=== PATIENT | female | born 1955 | race Caucasian/White ===

== ENCOUNTER 2017-01-20 15:17 | Emergency (ER) | payer BC ==
[2017-01-20 15:28] VITALS: TEMP 98.1; BMI 26.6
--- NOTE | 2017-01-20 16:40 | PDOC ---
History of Present Illness - General Chief Complaint: Palpitations Stated Complaint: PALPITATIONS/ SENSATION TO ARMS Time Seen by Provider: 01/20/17 15:39 History Source: Patient Exam Limitations: No Limitations - History of Present Illness Initial Comments: 01/20/17 17:32 The patient is a 61 year old female, with a significant past medical history of cervical Cancer (dx 2012), who presents to the emergency department with intermittent episodes of palpitations and tingling in her bilateral hands/ forearms intermittently for several days, these episodes last for ~5 seconds and then resolve. Pt also notes she has some facial tingling for day 1-2 after starting the tamoxifen but has since resolved. She reports being put on a new medication tamoxifen 2 weeks ago 01/05 for her cancer, with the development of her symptoms after. She also notes having some intermittent body aches, and joint pain since starting the medication as well. She denies fevers, chills, cough, headache or dizziness. She denies recent nausea, vomit, diarrhea or constipation. She denies recent dysuria, frequency, urgency or hematuria. She denies recent chest pain or shortness of breath. pt was referred to the ED by her doctor due to these sypmtoms. Allergies: Morphine Past surgical history: None reported. Social history: Nonsmoker. Denies EtOH use and recreational drug use. Daughter: Rema Montaño [phone] (cell) or [phone] (work) Oncologist: Dr. Wander Kirk [phone] Past History - Past Medical History Allergies/Adverse Reactions: Allergies Allergy/AdvReac Type Severity Reaction Status Date / Time morphine Allergy Mild Rash Verified 01/20/17 15:28 Home Medications: Ambulatory Orders Leuprolide Acetate [Lupron -] 1 mg SQ ASDIR 08/03/16 Cephalexin [Keflex] 500 mg PO BID #14 capsule 01/20/17 Tamoxifen Citrate 10 mg PO DAILY 01/20/17 Anemia: No Asthma: No Cancer: Yes (H/O UTERINE.) Cardiac Disorders: No CVA: No COPD: No CHF: No Dementia: No Diabetes: No GI Disorders: No Disorders: No HTN: No Hypercholesterolemia: No Liver Disease: No Suicide Attempt (Hx): No Seizures: No Thyroid Disease: No Other medical history: MACULAR DEGENERATION - Surgical History Abdominal Surgery: Yes (HERNIA) Appendectomy: Yes Cardiac Surgery: No Cholecystectomy: No Lung Surgery: No Neurologic Surgery: No Orthopedic Surgery: No - Psycho/Social/Smoking Cessation Hx Anxiety: No Suicidal Ideation: No Smoking History: Never smoked Have you smoked in the past 12 months: No Hx Alcohol Use: No Drug/Substance Use Hx: No Substance Use Type: None Hx Substance Use Treatment: No Cardiac Specific PMH - Complaint Specific PMHX Pacemaker: No Review of Systems - Review of Systems Able to Perform ROS?: Yes Comments:: 01/20/17 17:43 CONSTITUTIONAL: No reported: Fever, Chills, Diaphoresis, Generalized Weakness, Malaise, Loss of Appetite HEENT: No reported: Rhinorrhea, Nasal Congestion, Throat Pain, Throat Swelling, Difficulty Swallowing, Mouth Swelling, Ear Pain, Eye Pain, Visual Changes CARDIOVASCULAR: +Palpitations. No reported: Chest Pain, Syncope, Irregular Heart Rate, Lightheadedness, Peripheral Edema RESPIRATORY: No reported: Cough, Shortness of Breath, SOB with Exertion, Orthopnea, Wheezing , Stridor, Hemoptysis GASTROINTESTINAL: No reported: Abdominal pain, Abdominal Distension, Nausea, Vomiting, Diarrhea, Constipation, Melena, Hematochezia GENITOURINARY: No reported: Dysuria, Frequency, Urgency, Hesitancy, Flank Pain, Genital Pain MUSCULOSKELETAL: +body ahces No reported: Myalgia, Arthralgia, Joint Swelling, Back pain, Neck Pain SKIN: No reported: Rash, Itching, Pallor HEMATOLOGIC/IMMUNOLOGIC: No reported: Easy Bleeding, Easy Bruising, Lymphadenopathy, Frequent infections ENDOCRINE: No reported: Unexplained Weight Gain, Unexplained Weight Loss, Heat Intolerance , Cold Intolerance NEUROLOGIC: +UE numbness and tingling. No reported: Headache, Vertigo, Lightheadedness, Unsteady Gait, Seizure, Mental Status Changes, Incontinence PSYCHIATRIC: No reported: Anxiety, Depression *Physical Exam - Vital Signs Last Vital Signs Temp Pulse Resp BP Pulse Ox 98.1 F 70 18 136/70 100 01/20/17 15:26 01/20/17 21:16 01/20/17 21:16 01/20/17 21:16 01/20/17 21:16 - Physical Exam Comments: 01/20/17 17:44 GENERAL: The patient is awake, alert, and fully oriented, Nontoxic - in no acute distress. HEAD: Normocephalic, atraumatic. EYES: extraocular movements intact, sclera anicteric, conjunctiva clear. ENT: Normal voice, Moist mucous membranes. NECK: Normal range of motion, supple LUNGS: Breath sounds equal, clear to auscultation bilaterally. No wheezes, no rhonchi, no rales. HEART: Regular rate and rhythm, without murmur, rub or gallop. ABDOMEN: Soft, nontender, normoactive bowel sounds. No guarding, no rebound.No CVA tenderness EXTREMITIES: Normal range of motion, no edema. No clubbing or cyanosis. No cords , erythema, or tenderness. NEUROLOGICAL: No facial asymmetry, Normal speech. PSYCH: Normal mood, normal affect. SKIN: Warm, Dry, normal turgor. NEURO: Mental status: The patient is oriented x3. Cranial nerves: Cranial nerves II through XII are intact Motor: The upper extremities are 5 over 5 in all muscle groups. The lower extremities are 5 over 5 in all muscle groups. Negative pronator drift Sensation: Sensation is intact to light touch throughout. romberg negative Cerebellar: Xbbyhj-ltyqre-xwvk is normal in both upper extremities. Heel-knee- rodney is normal in both lower extremities. rapid alternating movements are normal. Heart Score/ECG Review - ECG Impressions Comment:: 01/20/17 16:40 Twelve-lead EKG was performed and reviewed by me. There is normal sinus rhythm with a normal rate. Rate of 63 The axis is normal. The intervals are normal. There are no ST or T wave abnormalities. Impression: Normal twelve-lead EKG ED Treatment Course - LABORATORY CBC & Chemistry Diagram: 01/20/17 16:51 01/20/17 16:51 - ADDITIONAL ORDERS Additional order review: Laboratory Results 01/20/17 16:51 Ur Specific [place] 1.015 01/20/17 16:51 RBC 5.05 MCV 90.9 MCHC 32.3 RDW 13.8 MPV 7.0 L Neutrophils % 54.1 Lymphocytes % 35.9 Monocytes % 7.7 Eosinophils % 1.6 Basophils % 0.7 Medical Decision Making - Medical Decision Making 01/20/17 16:39 61y F hx of cervical ca currently on lupron and recently started on tamaxifen, presents with complaint of intermittent body aches, palpitations, but denie sany cp, dizziness, sob, n/v, diaphoresis, abd pain, diarrhea, melena. pt told her md who told them to come to the ED. considered possible CVA, however unlikely based on constellation of sypmtoms. will discuss wit hher doctor will obtain blood work to r/o anemia, metabolic dernagement, ekg to screen for arrythmia ua to r/o uti will reassess 01/20/17 17:31 awaiting call back from dr. calderón 01/20/17 17:[address] kirk agrees if pt feelng well, labs unremarkable can dc with fu with dr. kirk as outpatient. will sign out to dr. Marie to fu with labs and reassess the patient. *DC/Admit/Observation/Transfer Diagnosis at time of Disposition: Paresthesias/numbness, Urinary tract infection - Discharge Dispostion Disposition: HOME Condition at time of disposition: Stable - Prescriptions Prescriptions: Cephalexin [Keflex] 500 mg PO BID #14 capsule - Referrals Referrals: Bandar Hunter MD [Primary Care Provider] - - Patient Instructions Printed Discharge Instructions: DI for Urinary Tract Infection (UTI), DI for Numbness/tingling Print Language: SLOVENIAN
[2017-01-20 17:14] LABS: BASOPHIL 0.7 % (0-2.0); EOSINOPHIL 1.6 % (0-4.5); MCH 29.3 pg (25.7-33.7); MCHC 32.3 g/dl (32.0-36.0); MEAN CELL VOLUME 90.9 fl (80-96); NEUTROPHILS 54.1 % (42.8-82.8); PLATELET COUNT 363 K/MM3 (134-434); RDW 13.8 % (11.6-15.6); WHITE BLOOD COUNT 8.3 K/mm3 (4.0-10.0)
[2017-01-20 17:48] LABS: ALBUMIN 3.4 g/dl (3.4-5.0); ANION GAP 7 (8-16); BILIRUBIN,TOTAL 0.4 mg/dL (0.2-1.0); CALCIUM 9.3 mg/dL (8.5-10.1); CO2 29 mmol/L (21-32); COCKROFT - GAULT 100.3255; CREATININE 0.6 mg/dL (0.55-1.02); GLUCOSE,RANDOM 87 mg/dL (74-106); MAGNESIUM 2.4 mg/dL (1.8-2.4); SGOT/AST 21 U/L (15-37); SGPT/ALT 23 U/L (12-78); TOT PROT 6.6 g/dl (6.4-8.2)
[2017-01-20 17:56] LABS: ALK PHOS 115 U/L (45-117)
[2017-01-20 18:01] LABS: INR 0.99 (0.82-1.09); PROTHROMBIN TIME (PATIENT) 10.9 SEC (9.98-11.88)
[2017-01-20 19:31] LABS: URINE APPEARANCE CLEAR; URINE BILIRUBIN NEGATIVE (NEGATIVE); URINE COLOR STRAW; URINE GLUCOSE (UA) NEGATIVE (NEGATIVE); URINE KETONE NEGATIVE (NEGATIVE); URINE NITRITE NEGATIVE (NEGATIVE); URINE PROTEIN NEGATIVE (NEGATIVE); URINE UROBILINOGEN NEGATIVE E.U./dl (0.2-1.0)
[2017-01-20 19:47] LABS: URINE BLOOD 2+ (NEGATIVE); URINE LEUK ESTERASE 1+ (NEGATIVE)
[2017-01-20 20:02] LABS: URINE MUCUS RARE; URINE RBC 11 /hpf (0-3); URINE WBC 11 /hpf (3-5)
--- NOTE | 2017-01-20 20:50 | PDOC ---
*Physical Exam - Vital Signs Last Vital Signs Temp Pulse Resp BP Pulse Ox 98.1 F 68 20 140/79 99 01/20/17 15:26 01/20/17 15:26 01/20/17 15:26 01/20/17 15:26 01/20/17 15:26 - Physical Exam Comments: 01/20/17 20:47 Patient endorsed to me by . Patient is a 61-year-old woman with history of cervical cancer, currently on Lupron on tamoxifen therapy who presented with bilateral hand paresthesias. In the ER, patient is nonfocal neurologically with glovelike distribution of paresthesias bilaterally. CBC/CMP within normal limit. Urinalysis reveals 11 WBCs per high-power field the patient reports dysuria. Will treat with Keflex with PMD follow-up for further evaluation and treatment. I do not suspect patient's symptoms are related to central neurological pathology. ED Treatment Course - LABORATORY CBC & Chemistry Diagram: 01/20/17 16:51 01/20/17 16:51 - ADDITIONAL ORDERS Additional order review: Laboratory Results 01/20/17 01/20/17 01/20/17 16:51 16:51 16:51 INR 0.99 Sodium 141 Potassium 5.0 Chloride 105 Carbon Dioxide 29 Anion Gap 7 L BUN 14 Creatinine 0.6 Creat Clearance w eGFR > 60 Random Glucose 87 Calcium 9.3 Magnesium 2.4 Total Bilirubin 0.4 AST 21 ALT 23 Alkaline Phosphatase 115 Total Protein 6.6 Albumin 3.4 TSH 1.30 Urine Color Straw Urine Appearance Clear Urine pH 6.0 Urine Protein Negative Urine Glucose (UA) Negative Urine Ketones Negative Urine Blood 2+ H Urine Nitrite Negative Urine Bilirubin Negative Urine Urobilinogen Negative Ur Leukocyte Esterase 1+ H Urine RBC 11 Urine WBC 11 Ur Epithelial Cells Few Urine Mucus Rare 01/20/17 16:51 RBC 5.05 MCV 90.9 MCHC 32.3 RDW 13.8 MPV 7.0 L Neutrophils % 54.1 Lymphocytes % 35.9 Monocytes % 7.7 Eosinophils % 1.6 Basophils % 0.7 *DC/Admit/Observation/Transfer Diagnosis at time of Disposition: Skin sensation disturbance Urinary tract infection Qualifiers: Urinary tract infection type: acute cystitis Hematuria presence: with hematuria Qualified Code(s): N30.01 - Acute cystitis with hematuria - Discharge Dispostion Disposition: HOME Condition at time of disposition: Stable - Referrals Referrals: Bandar Hunter MD [Primary Care Provider] - - Patient Instructions Printed Discharge Instructions: DI for Urinary Tract Infection (UTI), DI for Numbness/tingling Print Language: [place] KORE[place]
[2017-01-20 21:17] VITALS: BP 136/70; PULSE 70
--- NOTE | 2017-01-21 10:35 | EKG ---
Test Reason : Blood Pressure : / mmHG Vent. Rate : 063 BPM Atrial Rate : 063 BPM P-R Int : 146 ms QRS Dur : 062 ms QT Int : 412 ms P-R-T Axes : 054 071 064 degrees QTc Int : 421 ms NORMAL SINUS RHYTHM SEPTAL INFARCT , AGE UNDETERMINED ABNORMAL ECG WHEN COMPARED WITH ECG OF 28-FEB-2015 11:59, SEPTAL INFARCT IS NOW PRESENT Confirmed by DION WOMACK, SANTOS ([id number]) on 01/21/2017 10:34:57 AM Referred By: Confirmed By:SANTOS ASHLEY MD
== END 2017-01-20 21:12 | disposition home or self-care (01) ==
LOC: JER 15:17
DX: N39.0 Urinary tract infection, site not specified (principal); C53.9 Malignant neoplasm of cervix uteri, unspecified
CPT/HCPCS: 36415; 80053; 81003; 81015; 83735; 84443; 85025; 85610; 93005; 93010; 99284-25

== ENCOUNTER 2018-09-09 14:45 | Inpatient (IN) | payer BC ==
--- NOTE | 2018-09-09 15:43 | PDOC ---
Rapid Medical Evaluation Time Seen by Provider: 09/09/18 15:36 Medical Evaluation: Allergies Allergy/AdvReac Type Severity Reaction Status Date / Time morphine Allergy Mild Rash Verified 01/20/17 15:28 09/09/18 15:37 Pt c/o: abd burning since yesterday, no fever or diarrhea, + vomiting, hx of gerd on no meds, no blood in vomit Pt on brief exam: tender to epigastric area and luq Patient ordered for: cbc, comp, lipase, iv, protonix,, zofran Pt to proceed to the ED Discharge Disposition - Diagnosis Epigastric abdominal pain - Referrals - Patient Instructions - Post Discharge Activity
[2018-09-09] MEDS ORDERED: PANTOPRAZOLE SODIUM 40 MG in SODIUM CHLORIDE 100 ML IVPB ONE (15:44)
[2018-09-09] MEDS ORDERED: ONDANSETRON 4 MG/2 ML VIAL IVPUSH ONE (15:44)
[2018-09-09] MEDS ORDERED: PANTOPRAZOLE SODIUM 40 MG/100 ML BAG IVPB ONE (16:15)
[2018-09-09] MEDS ORDERED: ONDANSETRON 4 MG/2 ML VIAL ONE (16:16)
[2018-09-09 16:56] LABS: BASO % 0.4 % (0-2.0); EOS % 1.6 % (0-4.5); HEMATOCRIT 48.7 % (32.4-45.2); LYMPH % 19.9 % (8-40); MCH 31.5 pg (25.7-33.7); MCHC 34.9 g/dl (32.0-36.0); MEAN CELL VOLUME 90.3 fl (80-96); MEAN PLT VOLUME 6.6 fl (7.5-11.1); MONO % 9.1 % (3.8-10.2); WHITE BLOOD COUNT 14.6 K/mm3 (4.0-10.0)
[2018-09-09] MEDS ORDERED: SODIUM CHLORIDE 1,000 ML IV STA ×2 (17:19→21:41)
--- NOTE | 2018-09-09 17:23 | PDOC ---
Attending Attestation - Resident Resident Name: Maude Washburn - ED Attending Attestation I have performed the following: I have examined & evaluated the patient, The case was reviewed & discussed with the resident, I agree w/resident's findings & plan, Exceptions are as noted - HPI HPI: 09/09/18 21:42 The patient is a 63 year old female, with a significant past medical history of GERD, cervical cancer (per daughter has returned and there is a mass in the stomach) of who presents to the emergency department with 2 days of crampy, epigastric pain a/w 6 episodes of yellow non bloody emesis. The patient reports the pain onset last night after eating [place] food. The patient denies chest pain, shortness of breath, headache and dizziness. Denies LE edema, calf ttp Denies fever, chills, diarrhea and constipation. Denies dysuria, frequency, urgency and hematuria. Allergies: morphine Past surgical history: Social history: No reported PCP: Dr. Hunter - Physicial Exam PE: 09/09/18 21:48 GENERAL: Awake, alert, and fully oriented, in no acute distress EYES: Sclera anicteric, conjunctiva clear ENT: Oropharynx clear without exudates. Moist mucosa NECK: No lymphadenopathy, JVD, or masses LUNGS: Breath sounds equal, clear to auscultation bilaterally. No wheezes, and no crackles HEART: Regular rate and rhythm, normal S1 and S2, no murmurs, rubs or gallops ABDOMEN: Soft, + mild epigastric ttp and LLQ ttp, diminished bowel sounds. No guarding, no rebound. No masses EXTREMITIES: Normal range of motion, no edema. No cords, erythema, or tenderness. WWP. NEUROLOGICAL: Normal speech, cranial nerves intact, equal strength and sensation b/l SKIN: Warm, Dry, normal turgor, no rashes or lesions noted. - Medical Decision Making 09/09/18 21:52 63yo F hx cervical ca with recent recurrence presents to the ED with epigastric pain, tender in LLQ and epigastric pain, found to have SBO. Case discussed with Dr. Palafox who recommends NGT, NPO admission. Pt admitted to Dr. Camejo for further management. Case discussed in detail with admitting physician including history, physical exam and ancillary studies. Admitting physician has assumed care for the patient, will follow all pending diagnostics and will complete the evaluation and treatment.
[2018-09-09] MEDS ORDERED: MAG HYDROX/AL HYDROX/SIMETH 30 ML UNIT-DOSE CUP PO ONE (17:27)
[2018-09-09] MEDS ORDERED: MAG HYDROX/AL HYDROX/SIMETH 30 ML UNIT-DOSE CUP ONE (18:29)
[2018-09-09 19:05] LABS: ALBUMIN 3.7 g/dl (3.4-5.0); ALK PHOS 150 U/L (45-117); ANION GAP 10 MMOL/L (8-16); BILIRUBIN,TOTAL 0.7 mg/dL (0.2-1); BLOOD UREA NITROGEN 18 mg/dL (7-18); CALCIUM 9.6 mg/dL (8.5-10.1); CHLORIDE 100 mmol/L (98-107); CO2 31 mmol/L (21-32); CREATININE 0.7 mg/dL (0.55-1.3); GLUCOSE,RANDOM 105 mg/dL (74-106); LIPASE 197 U/L (73-393); POTASSIUM 4.4 mmol/L (3.5-5.1); SGOT/AST 17 U/L (15-37); SGPT/ALT 20 U/L (13-61); SODIUM 141 mmol/L (136-145); TOT PROT 7.1 g/dl (6.4-8.2)
[2018-09-09 19:07] LABS: PLATELET COUNT 390 K/MM3 (134-434); PLATELET ESTIMATE SLT INCREASE
--- NOTE | 2018-09-09 22:19 | PDOC ---
History of Present Illness - General Chief Complaint: Nausea/Vomiting Stated Complaint: STOMACH PAIN Time Seen by Provider: 09/09/18 15:36 History Source: Patient Exam Limitations: No Limitations - History of Present Illness Initial Comments: 09/09/18 22:10 Pt is a 63yo F with PMH of uterine cancer s/p hysterectomy, on trimonthly hormonal injections, GERD, appendectomy presenting to ED with complaints of 2 days of epigastric abdominal pain. Pt states the pain was worse after she had [place] food for dinner last night. She states the pain is in the epigastric area, feels like a burning and cramping. She vomited 5-6 times yellow in color this morning. Last BM was this AM (not bloody, not melenous). Last meal was 6pm last night. Denies fevers, chills, chest pain, sob, urinary symptoms. She usually takes Protonix but she ran out of her medications PMD: Elsa PMH: see hpi PSH: see hpi Meds: Protonix Allergies: morphine Social: denies Past History - Past Medical History Allergies/Adverse Reactions: Allergies Allergy/AdvReac Type Severity Reaction Status Date / Time morphine Allergy Mild Rash Verified 09/09/18 15:39 Home Medications: Ambulatory Orders Leuprolide Acetate [Lupron -] 1 mg SQ ASDIR 08/03/16 Cephalexin [Keflex] 500 mg PO BID #14 capsule 01/20/17 Tamoxifen Citrate 10 mg PO DAILY 01/20/17 Anemia: No Asthma: No Cancer: Yes (H/O UTERINE.) Cardiac Disorders: No CVA: No COPD: No CHF: No Dementia: No Diabetes: No GI Disorders: No Disorders: No HTN: No Hypercholesterolemia: No Liver Disease: No Seizures: No Thyroid Disease: No - Surgical History Abdominal Surgery: Yes (HERNIA) Appendectomy: Yes Cardiac Surgery: No Cholecystectomy: No Lung Surgery: No Neurologic Surgery: No Orthopedic Surgery: No - Suicide/Smoking/Psychosocial Hx Smoking History: Never smoked Have you smoked in the past 12 months: No Hx Alcohol Use: No Drug/Substance Use Hx: No Substance Use Type: None Hx Substance Use Treatment: No Review of Systems - Review of Systems Constitutional: No: Chills, Diaphoresis, Fever, Weakness HEENTM: No: Symptoms Reported Respiratory: No: Cough, Shortness of Breath Cardiac (ROS): No: Lightheadedness, Palpitations, Syncope ABD/GI: Yes: See HPI, Nausea, Vomiting, Abdominal cramping. No: Abdominal Distended, Blood Streaked Bowels, Constipated, Diarrhea, Rectal Bleeding : No: Burning, Dysuria Musculoskeletal: No: Back Pain, Joint Pain, Muscle Pain Integumentary: No: Symptoms Reported Neurological: No: Headache, Numbness, Tingling *Physical Exam - Vital Signs Last Vital Signs Temp Pulse Resp BP Pulse Ox 98.2 F 80 18 119/71 99 09/09/18 15:39 09/09/18 15:39 09/09/18 15:39 09/09/18 15:39 09/09/18 15:39 - Physical Exam General Appearance: Yes: Nourished, Appropriately Dressed, Mild Distress HEENT: positive: EOMI, NOREEN, Normal ENT Inspection Neck: positive: Trachea midline, Supple. negative: Lymphadenopathy (R), Lymphadenopathy (L) Respiratory/Chest: positive: Lungs Clear, Normal Breath Sounds. negative: Crackles, Rales, Rhonchi, Stridor, Wheezing Cardiovascular: positive: Regular Rhythm, Regular Rate, S1, S2. negative: Edema , JVD, Murmur Vascular Pulses: Carotid (R): 2+, Carotid (L): 2+, Dorsalis-Pedis (R): 2+, Doralis-Pedis (L): 2+ Gastrointestinal/Abdominal: positive: Normal Bowel Sounds, Soft, Tenderness ( epigastric tenderness, LLQ tendernes). negative: Increased Bowel Sounds, Distended, Guarding, Rebound, Hernia Musculoskeletal: negative: CVA Tenderness Extremity: positive: Normal Capillary Refill, Normal Inspection Integumentary: positive: Normal Color, Dry, Warm Neurologic: positive: manager trust II-XII NML intact, Fully Oriented, Alert, Normal Mood/ Affect, Normal Response, Motor Strength 5/5 Moderate Sedation - Procedure Monitoring Vital Signs: Procedure Monitoring Vital Signs Temperature 98.2 F 09/09/18 15:39 Pulse Rate 80 09/09/18 15:39 Respiratory Rate 18 09/09/18 15:39 Blood Pressure 119/71 09/09/18 15:39 O2 Sat by Pulse Oximetry (%) 99 09/09/18 15:39 ED Treatment Course - LABORATORY CBC & Chemistry Diagram: 09/09/18 16:10 09/09/18 17:52 - ADDITIONAL ORDERS Additional order review: Laboratory Results 09/09/18 09/09/18 17:52 16:25 Sodium 141 Cancelled Potassium 4.4 Cancelled Chloride 100 Cancelled Carbon Dioxide 31 Cancelled Anion Gap 10 Cancelled BUN 18 Cancelled Creatinine 0.7 Cancelled Creat Clearance w eGFR > 60 Cancelled Random Glucose 105 Cancelled Calcium 9.6 Cancelled Total Bilirubin 0.7 Cancelled AST 17 Cancelled ALT 20 Cancelled Alkaline Phosphatase 150 H Cancelled Troponin I < 0.02 Total Protein 7.1 Cancelled Albumin 3.7 Cancelled Lipase 197 Cancelled 09/09/18 16:10 RBC 5.40 H MCV 90.3 MCHC 34.9 RDW 14.0 MPV 6.6 L Neutrophils % 69.0 D Lymphocytes % 19.9 D Monocytes % 9.1 Eosinophils % 1.6 Basophils % 0.4 - RADIOLOGY Radiology Studies Ordered: Category Date Time Status ABDOMEN & PELVIS CT WITH CONTR [CT] Stat CT Scan 09/09/18 19:40 Completed - Medications Given in the ED: ED Medications Discontinued Medications Generic Name Dose Route Start Last Admin Trade Name Freq PRN Reason Stop Dose Admin Al Hydroxide/Mg Hydroxide 30 ml 09/09/18 17:27 09/09/18 18:55 Mylanta Oral Suspension - PO 09/09/18 17:28 30 ml ONCE ONE Administration Pantoprazole Sodium 40 mg/ 100 mls @ 200 mls/hr 09/09/18 15:44 09/09/18 17:02 Sodium Chloride IVPB 09/09/18 16:13 200 mls/hr ONCE ONE Administration Ondansetron HCl 4 mg 09/09/18 15:44 09/09/18 17:02 Zofran Injection IVPUSH 09/09/18 15:45 4 mg ONCE ONE Administration Medical Decision Making - Medical Decision Making 09/10/18 00:40 Pt is a 63yo F with PMH of uterine cancer s/p hysterectomy, on trimonthly hormonal injections, GERD, appendectomy presenting to ED with complaints of 2 days of epigastric abdominal pain Vitals: wnl PE: epigastric and LLQ tenderness. PT vomited 5-6 times this AM. Bowel movement this AM. Higher suspicion for gastritis however cannot rule out pancreatitis, cholecystitis, colitis, SBO, ACS -labs ordered by RME. Added on troponin, ekg, CTAP -IV fluids, zofran, pepcid, maalox. Labs show white count of 14, HGB 17. electrolytes wnl, ALkP 150. Pt reports feeling better and ambulating around ED. CTAP pending. CTAP: distal sbo seen with dilate small bowel loops within the central and left lateral third of the abdomen and pelvis. small amount of free fluid is seen within the abdomen and pelvis. A nondilated small bowel loop is seen within the right mid abdomen which appears to demonstrate mild concentric narrowing representing inflammatory change. diffuse hepatic steatosis t+s, coags and lactate added. lactate wnl. Dr. Palafox consulted. recommended admission and NG tube. Order placed for NG tube. Pt admitted to med/surg. *DC/Admit/Observation/Transfer Diagnosis at time of Disposition: Epigastric abdominal pain - Discharge Dispostion Decision to Admit order Date/Time: Decision to Admit Order Category Date Time Status Decision to Admit to Hospital Routine Admission 09/09/18 22:09 Ordered - Referrals - Patient Instructions - Post Discharge Activity
[2018-09-09 22:33] LABS: INR 1.02 (0.83-1.09)
--- NOTE | 2018-09-09 23:35 | HP ---
Admitting History and Physical - Primary Care Physician PCP: Bandar Hunter - Admission Chief Complaint: abdominal pain History of Present Illness: this is a 63 y/o f presented to the hospital with abdominal pain that started this morning, according to the patient she had some somali food last night and that made things worse, she denied any fever chills, nausea, vomiting, she is passing gas without any problem passing gas. she stated she was doing well until today History Source: Patient Limitations to Obtaining History: No Limitations - Smoking History Smoking history: Never smoked Have you smoked in the past 12 months: No - Alcohol/Substance Use Hx Alcohol Use: No Home Medications - Allergies Allergies/Adverse Reactions: Allergies Allergy/AdvReac Type Severity Reaction Status Date / Time morphine Allergy Mild Rash Verified 09/09/18 15:39 - Home Medications Home Medications: Ambulatory Orders Leuprolide Acetate [Lupron -] 1 mg SQ ASDIR 08/03/16 Cephalexin [Keflex] 500 mg PO BID #14 capsule 01/20/17 Tamoxifen Citrate 10 mg PO DAILY 01/20/17 Review of Systems - Review of Systems Constitutional: reports: Weakness Eyes: reports: No Symptoms HENT: reports: No Symptoms Neck: reports: No Symptoms Cardiovascular: reports: No Symptoms Respiratory: reports: No Symptoms Gastrointestinal: reports: Abdominal Pain, Bloating, Indigestion Genitourinary: reports: No Symptoms Breasts: reports: No Symptoms Reported Musculoskeletal: reports: No Symptoms Integumentary: reports: No Symptoms Neurological: reports: No Symptoms Endocrine: reports: No Symptoms Hematology/Lymphatic: reports: No Symptoms Physical Examination Vital Signs: Vital Signs Temperature 98.2 F 09/09/18 15:39 Pulse Rate 80 09/09/18 15:39 Respiratory Rate 18 09/09/18 15:39 Blood Pressure 119/71 09/09/18 15:39 O2 Sat by Pulse Oximetry (%) 99 09/09/18 15:39 Constitutional: Yes: Well Nourished, No Distress, Calm Eyes: Yes: WNL, Conjunctiva Clear, EOM Intact HENT: Yes: WNL, Atraumatic, Normocephalic Neck: Yes: WNL, Supple, Trachea Midline Cardiovascular: Yes: WNL, Regular Rate and Rhythm, S1, S2 Respiratory: Yes: WNL, Regular, CTA Bilaterally Gastrointestinal: Yes: Normal Bowel Sounds, Abdomen, Obese, Distention, Hyperactive Bowel Sounds, Tenderness Renal/: Yes: WNL Musculoskeletal: Yes: WNL Extremities: Yes: WNL Edema: No Peripheral Pulses WNL: Yes Integumentary: Yes: WNL Neurological: Yes: WNL, Alert, Oriented ...Motor Strength: WNL Psychiatric: Yes: WNL, Alert, Oriented Labs: CBC, BMP 09/09/18 16:10 09/09/18 17:52 Imaging - Results X-ray: Image Reviewed Ultrasound: Image Reviewed Problem List - Problems (1) SBO (small bowel obstruction) Assessment/Plan: keep patient NPO correct electrolyte abnormalities NGT placement heparin-sub q Code(s): K56.609 - UNSP INTESTNL OBST, UNSP TO PARTIAL VERSUS COMPLETE OBST
[2018-09-10] MEDS ORDERED: hydrALAZINE HCL 20 MG/ML VIAL ONE (00:43)
[2018-09-10 03:46] VITALS: BMI 26.2
[2018-09-10] MEDS: HEPARIN NA (PORCINE) 5,000 UNITS/ML 1ML VIAL SQ SCH ×3 (06:43→21:57)
[2018-09-10 09:43] LABS: BASO % 0.2 % (0-2.0); EOS % 2.5 % (0-4.5); HEMATOCRIT 40.4 % (32.4-45.2); HEMOGLOBIN 13.8 GM/dL (10.7-15.3); MCHC 34.3 g/dl (32.0-36.0); MEAN CELL VOLUME 90.3 fl (80-96); MEAN PLT VOLUME 6.4 fl (7.5-11.1); MONO % 6.9 % (3.8-10.2); NEUT % 75.4 % (42.8-82.8); PLATELET COUNT 340 K/MM3 (134-434); RBC 4.47 M/mm3 (3.60-5.2); RDW 13.7 % (11.6-15.6); WHITE BLOOD COUNT 11.7 K/mm3 (4.0-10.0)
--- NOTE | 2018-09-10 09:52 | CONSULT ---
- Consultation REQUESTING PROVIDER: ER MD CONSULT REQUEST: We have been asked to surgically evaluate this patient for nausea and vomiting and abdominal pain and obstipation. PCP:Laura Wetzel HISTORY OF PRESENT ILLNESS: Recent onset of above complaints; pain diffuse and crampy; no flatus and/or bowel movement; she has NOC. 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 at [facility]; she has never had this before. PMHx: none PSHx: as above Home Medications Medication Instructions Recorded Leuprolide Acetate [Lupron -] 1 mg SQ ASDIR 08/03/16 Cephalexin [Keflex] 500 mg PO BID #14 capsule 01/20/17 Tamoxifen Citrate 10 mg PO DAILY 01/20/17 Allergies Allergy/AdvReac Type Severity Reaction Status Date / Time morphine Allergy Mild Rash Verified 09/09/18 15:39 PHYSICAL EXAM: GENERAL: Awake, alert, and fully oriented, in no acute distress. HEAD: Normal with no signs of trauma. EYES: sclera anicteric, conjunctiva clear. NECK: Normal ROM, supple without lymphadenopathy, JVD, or masses. ABDOMEN: Soft, nontender, not distended, hypoactive bowel sounds, no guarding, no rebound, no masses. No organomegaly. Healed scars; no hernias. MUSCULOSKELETAL: Normal ROM at all joints. No bony deformities or tenderness. No CVA tenderness. UPPER EXTREMITIES: 2+ pulses, warm, well-perfused. No cyanosis. Cap refill <2 seconds. No peripheral edema. LOWER EXTREMITIES: 2+ pulses, warm, well-perfused. No calf tenderness. No peripheral edema. NEUROLOGICAL: Normal speech, gait not observed. PSYCH: Cooperative. Good eye contact. Appropriate mood and affect. SKIN: Warm, dry, normal turgor, no rashes or lesions noted. Vital Signs Temperature 97.8 F 09/09/18 23:57 Pulse Rate 70 09/09/18 23:57 Respiratory Rate 18 09/09/18 23:52 Blood Pressure 125/77 09/09/18 23:57 O2 Sat by Pulse Oximetry (%) 97 09/09/18 23:57 Lab Results WBC 11.7 K/mm3 (4.0-10.0) H 09/10/18 09:00 RBC 4.47 M/mm3 (3.60-5.2) 09/10/18 09:00 Hgb 13.8 GM/dL (10.7-15.3) 09/10/18 09:00 Hct 40.4 % (32.4-45.2) D 09/10/18 09:00 MCV 90.3 fl (80-96) 09/10/18 09:00 MCHC 34.3 g/dl (32.0-36.0) 09/10/18 09:00 RDW 13.7 % (11.6-15.6) 09/10/18 09:00 Plt Count 340 K/MM3 (134-434) 09/10/18 09:00 Sodium 141 mmol/L (136-145) 09/09/18 17:52 Potassium 4.4 mmol/L (3.5-5.1) 09/09/18 17:52 Chloride 100 mmol/L (98-107) 09/09/18 17:52 Carbon Dioxide 31 mmol/L (21-32) 09/09/18 17:52 Anion Gap 10 MMOL/L (8-16) 09/09/18 17:52 BUN 18 mg/dL (7-18) 09/09/18 17:52 Creatinine 0.7 mg/dL (0.55-1.3) 09/09/18 17:52 Random Glucose 105 mg/dL (74-106) 09/09/18 17:52 Calcium 9.6 mg/dL (8.5-10.1) 09/09/18 17:52 Blood Type O POSITIVE 09/09/18 21:30 Antibody Screen Negative 09/09/18 21:30 INR 1.02 (0.83-1.09) 09/09/18 21:30 CT scan a/p reviewed and c/w SBO IMP: SBO PLAN: NPO/NGT/IVF?serial exams and abdominal x rays; will f/u; d/w patient in [place] about failure of conservative tx. which would require laparotomy and ALEXX and possible related procedures. Gio Palafox MD FACS
[2018-09-10 10:08] LABS: INR 1.01 (0.83-1.09); PROTHROMBIN TIME (PATIENT) 11.9 SEC (9.7-13.0)
[2018-09-10 10:11] LABS: ACTIVATED PTT 32.2 SECONDS (25.2-36.5)
[2018-09-10 10:22] LABS: ALBUMIN 2.9 g/dl (3.4-5.0); ALK PHOS 114 U/L (45-117); ANION GAP 5 MMOL/L (8-16); BILIRUBIN,TOTAL 1.1 mg/dL (0.2-1); BLOOD UREA NITROGEN 13 mg/dL (7-18); CALCIUM 7.8 mg/dL (8.5-10.1); CHLORIDE 108 mmol/L (98-107); CO2 29 mmol/L (21-32); CREATININE 0.6 mg/dL (0.55-1.3); GLUCOSE,RANDOM 97 mg/dL (74-106); POTASSIUM 4.2 mmol/L (3.5-5.1); SGOT/AST 11 U/L (15-37); SGPT/ALT 14 U/L (13-61); SODIUM 142 mmol/L (136-145); TOT PROT 5.4 g/dl (6.4-8.2)
--- NOTE | 2018-09-10 11:51 | PN ---
Progress Note (short form) - Note Progress Note: Events noted has mild abdominal pain No nausea on NGT+ Vital Signs - 24 hr 09/09/18 09/09/18 09/09/18 15:39 19:10 22:09 Temperature 98.2 F 98.0 F 97.8 F Pulse Rate 80 77 Pulse Rate [ 80 Left Radial] Respiratory 18 18 20 Rate Blood Pressure 119/71 130/73 Blood Pressure 119/72 [Left Arm] O2 Sat by Pulse 99 97 Oximetry (%) 09/09/18 09/09/18 09/10/18 23:52 23:57 09:00 Temperature 98.1 F 97.8 F 98.1 F Pulse Rate 84 Pulse Rate [ 78 70 Left Radial] Respiratory 18 18 Rate Blood Pressure 115/71 Blood Pressure 122/78 125/77 [Left Arm] O2 Sat by Pulse 98 97 Oximetry (%) Current Medications Generic Name Dose Route Start Last Admin Trade Name Freq PRN Reason Stop Dose Admin Heparin Sodium (Porcine) 5,000 unit 09/10/18 06:00 09/10/18 06:43 Heparin - SQ 5,000 unit TID SILVESTRE Administration Laboratory Results - last 24 hr 09/09/18 09/09/18 09/09/18 16:10 16:25 17:52 WBC 14.6 H RBC 5.40 H Hgb 17.0 H Hct 48.7 H MCV 90.3 MCH 31.5 MCHC 34.9 RDW 14.0 Plt Count 390 MPV 6.6 L Absolute Neuts (auto) 10.1 H Neutrophils % 69.0 D Lymphocytes % 19.9 D Monocytes % 9.1 Eosinophils % 1.6 Basophils % 0.4 Nucleated RBC % 0 Platelet Estimate Slt increase PT with INR INR PTT (Actin FS) Sodium Cancelled 141 Potassium Cancelled 4.4 Chloride Cancelled 100 Carbon Dioxide Cancelled 31 Anion Gap Cancelled 10 BUN Cancelled 18 Creatinine Cancelled 0.7 Creat Clearance w eGFR Cancelled > 60 Random Glucose Cancelled 105 Lactic Acid Calcium Cancelled 9.6 Phosphorus Magnesium Total Bilirubin Cancelled 0.7 AST Cancelled 17 ALT Cancelled 20 Alkaline Phosphatase Cancelled 150 H Troponin I < 0.02 Total Protein Cancelled 7.1 Albumin Cancelled 3.7 Lipase Cancelled 197 Blood Type Antibody Screen 09/09/18 09/09/18 09/09/18 21:30 21:30 21:31 WBC RBC Hgb Hct MCV MCH MCHC RDW Plt Count MPV Absolute Neuts (auto) Neutrophils % Lymphocytes % Monocytes % Eosinophils % Basophils % Nucleated RBC % Platelet Estimate PT with INR 12.00 INR 1.02 PTT (Actin FS) Sodium Potassium Chloride Carbon Dioxide Anion Gap BUN Creatinine Creat Clearance w eGFR Random Glucose Lactic Acid 1.5 Calcium Phosphorus Magnesium Total Bilirubin AST ALT Alkaline Phosphatase Troponin I Total Protein Albumin Lipase Blood Type O POSITIVE Antibody Screen Negative 09/10/18 09/10/18 09/10/18 09:00 09:00 09:00 WBC 11.7 H RBC 4.47 Hgb 13.8 Hct 40.4 D MCV 90.3 MCH 31.0 MCHC 34.3 RDW 13.7 Plt Count 340 MPV 6.4 L Absolute Neuts (auto) 8.8 H Neutrophils % 75.4 Lymphocytes % 15.0 D Monocytes % 6.9 Eosinophils % 2.5 Basophils % 0.2 Nucleated RBC % 0 Platelet Estimate PT with INR 11.90 INR 1.01 PTT (Actin FS) 32.2 Sodium 142 Potassium 4.2 Chloride 108 H Carbon Dioxide 29 Anion Gap 5 L BUN 13 Creatinine 0.6 Creat Clearance w eGFR > 60 Random Glucose 97 Lactic Acid Calcium 7.8 L Phosphorus 3.0 Magnesium 2.0 Total Bilirubin 1.1 H AST 11 L ALT 14 Alkaline Phosphatase 114 Troponin I Total Protein 5.4 L Albumin 2.9 L Lipase Blood Type Antibody Screen s1 s2 RRR Lungs clear Abd- soft, tender +all areas, BS not heard no edema PLAN iv fluids keep NPO Serial Abd xrays Surgeon jonal noted Problem List - Problems (1) Epigastric abdominal pain Code(s): R10.13 - EPIGASTRIC PAIN (2) SBO (small bowel obstruction) Code(s): K56.609 - UNSP INTESTNL OBST, UNSP TO PARTIAL VERSUS COMPLETE OBST
--- NOTE | 2018-09-10 13:07 | EKG ---
Test Reason : Blood Pressure : / mmHG Vent. Rate : 074 BPM Atrial Rate : 074 BPM P-R Int : 158 ms QRS Dur : 060 ms QT Int : 400 ms P-R-T Axes : 071 062 060 degrees QTc Int : 444 ms NORMAL SINUS RHYTHM SEPTAL INFARCT (CITED ON OR BEFORE 20-JAN-2017) T WAVE ABNORMALITY, CONSIDER ANTERIOR ISCHEMIA ABNORMAL ECG Confirmed by ABIMAEL JEFFREY MD ([id number]) on 09/10/2018 1:07:23 PM Referred By: Confirmed By:ABIMAEL JEFFREY MD
[2018-09-10] MEDS: D5-1/2NS+20 MEQ KCL - 20 MEQ/1,000 ML INFUS.BAG IV SCH (15:01)
[2018-09-11] MEDS: D5-1/2NS+20 MEQ KCL - 20 MEQ/1,000 ML INFUS.BAG IV SCH (04:36)
[2018-09-11 07:37] LABS: ANION GAP 5 MMOL/L (8-16); BLOOD UREA NITROGEN 8 mg/dL (7-18); CALCIUM 8.2 mg/dL (8.5-10.1); CHLORIDE 106 mmol/L (98-107); CO2 29 mmol/L (21-32); CREATININE 0.5 mg/dL (0.55-1.3); GLUCOSE,RANDOM 106 mg/dL (74-106); MAGNESIUM 2.4 mg/dL (1.8-2.4); SODIUM 140 mmol/L (136-145)
[2018-09-11] MEDS: HEPARIN NA (PORCINE) 5,000 UNITS/ML 1ML VIAL SQ SCH ×3 (08:16→21:25)
--- NOTE | 2018-09-11 10:42 | PN ---
Progress Note (short form) - Note Progress Note: Attending Surgeon Feels better; had BM and flatus VSS AF abdo-soft; non tender; active BS; o/w negative Imaging yesterday w/o radiographic evidence of obstruction NGT minimal IMP: resolving SBO PLAN: D/C NGT; trial of clear liquids and advance as tolerated. Gio Palafox MD FACS
--- NOTE | 2018-09-11 11:20 | PN ---
Progress Note (short form) - Note Progress Note: Events noted NG removed had bm yesterday and today flatus+ no abdominal pain No nausea Vital Signs - 24 hr 09/10/18 09/10/18 09/10/18 15:29 18:30 21:00 Temperature 97.9 F 97.7 F Pulse Rate 83 83 Respiratory 17 18 18 Rate Blood Pressure 112/56 L 121/77 O2 Sat by Pulse 97 Oximetry (%) 09/10/18 09/11/18 09/11/18 22:00 06:00 09:00 Temperature 98.2 F 98.2 F Pulse Rate 80 81 Respiratory 18 18 Rate Blood Pressure 123/72 127/78 O2 Sat by Pulse 100 Oximetry (%) 09/11/18 10:00 Temperature 97.7 F Pulse Rate 84 Respiratory 18 Rate Blood Pressure 125/76 O2 Sat by Pulse Oximetry (%) Current Medications Generic Name Dose Route Start Last Admin Trade Name Freq PRN Reason Stop Dose Admin Heparin Sodium (Porcine) 5,000 unit 09/10/18 06:00 09/11/18 08:16 Heparin - SQ 5,000 unit TID [facility] Administration Potassium Chloride/Dextrose/Sod Cl 20 meq in 1,000 mls @ 83 mls/hr 09/10/18 12 :00 09/11/18 04:36 D5-1/2ns+20 Meq Kcl - IV 83 mls/hr ASDIR SILVESTRE Administration Laboratory Results - last 24 hr 09/11/18 06:30 Sodium 140 Potassium 5.0 Chloride 106 Carbon Dioxide 29 Anion Gap 5 L BUN 8 Creatinine 0.5 L Creat Clearance w eGFR > 60 Random Glucose 106 Calcium 8.2 L Magnesium 2.4 s1 s2 RRR Lungs clear Abd- soft, tender +all areas, BS not heard no edema PLAN iv fluids dc clear liquids oob advance diet as tolerated dc planning likely tomorrow Problem List - Problems (1) Epigastric abdominal pain Code(s): R10.13 - EPIGASTRIC PAIN (2) SBO (small bowel obstruction) Code(s): K56.609 - UNSP INTESTNL OBST, UNSP TO PARTIAL VERSUS COMPLETE OBST
[2018-09-12] MEDS: HEPARIN NA (PORCINE) 5,000 UNITS/ML 1ML VIAL SQ SCH ×2 (05:55→14:47)
--- NOTE | 2018-09-12 10:31 | PN ---
Progress Note (short form) - Note Progress Note: 63yo F h/o SBO, pt seen and examined at bedside. Pt states that she is feeling well. Pt denies any n/v, fever, chills. Pt denies abd pain states tolerating liquids well. Pt had BM yesterday and passing flatus. Pt would like to go home. Last Vital Signs Temp Pulse Resp BP Pulse Ox 98 F 70 20 108/59 L 100 09/12/18 06:00 09/12/18 06:00 09/12/18 09:00 09/12/18 06:00 09/12/18 09:00 CBC, BMP 09/10/18 09:00 09/11/18 06:30 PE: Gen: A&O x3 Resp: breathing comfortably Abd: soft,nontender, nondistended Problem List - Problems (1) SBO (small bowel obstruction) Assessment/Plan: Plan -pt appears to have opened up, will advance diet to regular -pt cleared from surgical standpoint Code(s): K56.609 - UNSP INTESTNL OBST, UNSP TO PARTIAL VERSUS COMPLETE OBST
--- NOTE | 2018-09-12 11:07 | DS ---
Physical Examination Vital Signs: Vital Signs Temperature 98 F 09/12/18 06:00 Pulse Rate 70 09/12/18 06:00 Respiratory Rate 20 09/12/18 09:00 Blood Pressure 108/59 L 09/12/18 06:00 O2 Sat by Pulse Oximetry (%) 100 09/12/18 09:00 Findings/Remarks: patient seen and examined. Chart reviewed. Awake and comfortable. Denies pain walking in hallway Having bowel movements Tolerating diet Constitutional: Yes: No Distress, Calm Eyes: Yes: Conjunctiva Clear Neck: Yes: Supple Cardiovascular: Yes: Regular Rate and Rhythm Respiratory: Yes: CTA Bilaterally Gastrointestinal: Yes: Normal Bowel Sounds, Soft Edema: No Labs: CBC, BMP 09/10/18 09:00 09/11/18 06:30 Discharge Summary Reason For Visit: SMALL BOWEL OBSTRUCTION Current Active Problems Epigastric abdominal pain (Acute) SBO (small bowel obstruction) (Acute) Hospital Course: Admitted for abdominal pain/small bowel obstruction Managed conservatively recovered well. Symptoms resolved Will discharge home today patient would like to go back to Work tomorrow--discussed--- no objection if patient feels okay patient also advised strongly to follow-up with her PMD in about 1 week Patient in agreement with all about discussed with nursing staff also Condition: Improved - Instructions Diet, Activity, Other Instructions: Diet as tolreated Can join duty as of tomorrow Activity as tolerated may take shower Referrals: Bandar Hunter MD [Primary Care Provider] - Disposition: HOME - Home Medications Comprehensive Discharge Medication List: Ambulatory Orders Leuprolide Acetate [Lupron 1Mg-] 1 mg SQ ASDIR 08/03/16 Tamoxifen Citrate 10 mg PO DAILY 01/20/17 Exemestane [Aromasin -] 25 mg PO DAILY 01/19/18
--- NOTE | 2018-09-12 11:09 | PN ---
Progress Note (short form) - Note Progress Note: Letter for work This is to say that Pt Shelby Diallo is under my care at [facility] Will be released today Doing well Can join duty as of tomorrow.-- 09/13/18. No restrictions. Feel free to call me if any concerns. Thanks Dr. Wetzel [phone].
[2018-09-12 13:33] VITALS: BP 120/76; PULSE 67; TEMP 98.1
== END 2018-09-12 15:12 | disposition home or self-care (01) | DRG 390 ==
LOC: JERFT 14:45 → JERBED 22:09 → J8W 09-10 01:42
PROVIDERS: ADMIT Internal Medicine; ATTEND Internal Medicine
PROC: 0D9670Z Drainage of Stomach with Drainage Device, Via Natural or Artificial Opening (ICD-10-PCS; principal; 2018-09-09)
PROC: 0DP6X0Z Removal of Drainage Device from Stomach, External Approach (ICD-10-PCS; 2018-09-11)
DX: K56.609 Unspecified intestinal obstruction, unspecified as to partial versus complete obstruction (principal); K21.9 Gastro-esophageal reflux disease without esophagitis; Z85.42 Personal history of malignant neoplasm of other parts of uterus
CPT/HCPCS: 36415; 74019-TC-FY; 74177-TC; 80048; 80053; 83605; 83690; 83735; 84100; 84484; 85025; 85610; 85730; 86850; 86900; 86901; 93005; 93010; 99285-25; J1644; J7030

== ENCOUNTER 2018-09-17 02:25 | Inpatient (IN) | payer BC | END 2018-09-19 15:44 | disposition home or self-care (01) | LOC: JER 02:25 → JERBED 08:46 → J8W 11:46 ==

== ENCOUNTER 2021-07-08 15:38 | Emergency (ER) | payer BC ==
[2021-07-08 16:08] VITALS: BP 132/86; PULSE 84; TEMP 98.2; BMI 28.9
[2021-07-08] MEDS ORDERED: ACETAMINOPHEN 500 MG TABLET (FP) PO ONE (16:58)
[2021-07-08] MEDS ORDERED: LIDOCAINE 5% TOPICAL PATCH TP ONE (16:58)
[2021-07-08] MEDS ORDERED: LIDOCAINE 5% TOPICAL PATCH ONE (17:03)
[2021-07-08] MEDS ORDERED: ACETAMINOPHEN 500 MG TABLET (FP) ONE (17:04)
[2021-07-08] MEDS ORDERED: LIDOCAINE PATCH REMOVAL MC SCH (22:00)
== END 2021-07-08 17:41 | disposition home or self-care (01) ==
LOC: JERFT 15:38
DX: R07.81 Pleurodynia (principal); W19.XXXA Unspecified fall, initial encounter; Y92.9 Unspecified place or not applicable
CPT/HCPCS: 71046-TC-FY; 71101-TC-LT-FY; 93005; 93010; 99284-25

== ENCOUNTER 2022-05-04 14:48 | Emergency (ER) | payer OTHER, BC ==
[2022-05-04 14:56] VITALS: BP 135/55; PULSE 75; RESP 20; TEMP 98.1; BMI 27.3
== END 2022-05-04 20:15 | disposition home or self-care (01) ==
LOC: JERFT 14:48
DX: M54.50 Low back pain, unspecified (principal)
CPT/HCPCS: 72131-TC; 74176-TC; 99284-25

== ENCOUNTER 2025-02-20 04:53 | Inpatient (IN) | payer OTHER, BC ==
[2025-02-20 04:58] VITALS: BMI 27.1
[2025-02-20] MEDS ORDERED: KETOROLAC TROMETHAMINE 30 MG/1 ML VIAL ONE (06:24)
[2025-02-20] MEDS: KETOROLAC TROMETHAMINE 30 MG/1 ML VIAL IVPUSH ONE (06:37)
[2025-02-20] MEDS: SODIUM CHLORIDE 1,000 ML IV STA (06:37)
[2025-02-20 06:51] LABS: ABSOLUTE IMMATURE GRANULOCYTES 0.07 x10^3/uL (0.0-0.031); BASOPHILS # 0.03 x10^3/uL (0.01-0.08); EOSINOPHIL % 0.3 % (0.7-5.8); EOSINOPHILS # 0.03 x10^3/uL (0.04-0.36); MCHC 32.8 g/dl (32.2-35.5); MEAN CELL VOLUME 89.5 fl (79.4-94.8); MEAN PLT VOLUME 8.4 fl (9.4-12.3); MONOCYTE # 0.61 x10^3/uL (0.24-0.86); MONOCYTE % 6.4 % (4.7-12.5); RDW 13.2 % (12.4-16.6)
[2025-02-20 07:04] LABS: CO2 28.0 mmol/L (21-32); GLUCOSE,RANDOM 136.0 mg/dL (74-106)
[2025-02-20 07:06] LABS: SGPT/ALT 28.0 U/L (13-61)
[2025-02-20 07:07] LABS: CREATININE 0.6 mg/dL (0.55-1.3); SGOT/AST 28.0 U/L (15-37)
[2025-02-20 07:08] LABS: TOT PROT 6.9 g/dl (6.4-8.2)
[2025-02-20 07:09] LABS: ALK PHOS 138.0 U/L (45-117)
[2025-02-20 10:13] LABS: EPI CELLS 7 /uL (0-25.1); HYALINE CASTS 1 /uL (0-3.1); URINE APPEARANCE CLOUDY; URINE BACTERIA 20 /uL (0-1359); URINE BILIRUBIN NEGATIVE (NEGATIVE); URINE COLOR YELLOW; URINE GLUCOSE (UA) NEGATIVE (NEGATIVE); URINE KETONE NEGATIVE (NEGATIVE); URINE LEUK ESTERASE NEGATIVE (NEGATIVE); URINE NITRITE NEGATIVE (NEGATIVE); URINE PROTEIN NEGATIVE (NEGATIVE); URINE RBC 63 /uL (0-23.9); URINE UROBILINOGEN 0.2 mg/dL (0.2-1.0); URINE WBC 11 /uL (0-25.8)
[2025-02-20] MEDS: LACTATED RINGERS SOLUTION 1,000 ML/1,000 ML INFUS.BAG IV SCH (10:52)
[2025-02-20] MEDS ORDERED: LIDOCAINE HCL 2% JELLY 6 ML TP ONE (11:08)
[2025-02-20] MEDS: LIDOCAINE HCL 2% JELLY 6 ML TP ONE (11:29)
[2025-02-20] MEDS ORDERED: LACTATED RINGERS SOLUTION 1,000 ML IV SCH ×2 (11:30→17:30)
[2025-02-20] MEDS ORDERED: ACETAMINOPHEN 1000 MG/100 ML BAG IVPB PRN (15:06)
[2025-02-20 16:39] LABS: HIV INTERPRETATION NEGATIVE (NEGATIVE)
[2025-02-20 16:40] LABS: HCV DIAGNOSTIC IN-HOUSE W/RFLX NON-REACTIVE (NONREACTIVE)
[2025-02-20] MEDS ORDERED: ONDANSETRON 4 MG/2 ML VIAL ONE (16:44)
[2025-02-20] MEDS ORDERED: GLYCOPYRROLATE 0.2 MG/1 ML VIAL ONE (16:44)
[2025-02-20] MEDS ORDERED: LIDOCAINE HCL/PF 2% SDV 5ML VIAL ONE (16:44)
[2025-02-20] MEDS ORDERED: DEXAMETHASONE SOD PHOSPHATE 4 MG/1 ML VIAL ONE (16:44)
[2025-02-20] MEDS ORDERED: PROPOFOL 20 ML ONE (16:50)
[2025-02-20] MEDS ORDERED: MIDAZOLAM HCL 2 MG/2 ML SINGLE DOSE VIAL ONE (16:50)
[2025-02-20] MEDS ORDERED: ROCURONIUM BROMIDE 50 MG/5 ML SYRINGE ONE ×3 (16:51→21:01)
[2025-02-20] MEDS ORDERED: ONDANSETRON 4 MG/2 ML VIAL IVPUSH PRN ×2 (17:16→22:06)
[2025-02-20] MEDS ORDERED: ACETAMINOPHEN INJECTION 100 ML ONE (17:44)
[2025-02-20] MEDS ORDERED: INDOCYANINE GREEN 25 MG/10 ML VIAL IVPUSH ONE (19:43)
[2025-02-20] MEDS: BUPIVACAINE HCL/PF 0.25% (2.5MG/ML) 10 ML VIAL IJ ONE (21:39)
[2025-02-20] MEDS ORDERED: HYDROmorphone HCL CARPU-JECT 2 MG/1 ML DISP.SYRIN IVPB PRN (22:06)
[2025-02-20] MEDS: LACTATED RINGERS SOLUTION 1,000 ML IV SCH ×2 (22:13→23:32)
[2025-02-20] MEDS ORDERED: HYDROmorphone HCL CARPU-JECT 2 MG/1 ML DISP.SYRIN IVPUSH PRN (23:04)
[2025-02-21] MEDS: ACETAMINOPHEN 1000 MG/100 ML BAG IVPB SCH (05:00)
[2025-02-21] MEDS: CEFOXITIN SODIUM 2 GM in DEXTROSE 5%-WATER 100 ML IVPB SCH (05:30)
[2025-02-21 08:49] LABS: MCHC 32.5 g/dl (32.2-35.5); MEAN CELL VOLUME 90.7 fl (79.4-94.8); MEAN PLT VOLUME 8.5 fl (9.4-12.3); RDW 13.4 % (12.4-16.6)
[2025-02-21 09:16] LABS: CO2 25.0 mmol/L (21-32); GLUCOSE,RANDOM 176.0 mg/dL (74-106)
[2025-02-21 09:19] LABS: CREATININE 0.9 mg/dL (0.55-1.3); SGOT/AST 24.0 U/L (15-37); SGPT/ALT 22.0 U/L (13-61)
[2025-02-21 09:21] LABS: TOT PROT 5.4 g/dl (6.4-8.2)
[2025-02-21] MEDS: PANTOPRAZOLE SODIUM 40 MG VIAL IVPUSH SCH (09:28)
[2025-02-21] MEDS: ENOXAPARIN NA (PORCINE) 40 MG/0.4 ML DISP.SYRIN SQ SCH (09:31)
[2025-02-21] MEDS ORDERED: PANTOPRAZOLE SODIUM 40 MG VIAL IVPUSH SCH (10:00)
[2025-02-21] MEDS ORDERED: ENOXAPARIN NA (PORCINE) 40 MG/0.4 ML DISP.SYRIN SQ SCH (10:00)
[2025-02-21 10:09] LABS: ALK PHOS 97.0 U/L (45-117); LACTIC ACID 4.6 mmol/L (0.4-2.0)
[2025-02-21 12:17] LABS: LACTIC ACID 2.1 mmol/L (0.4-2.0)
[2025-02-21 12:26] LABS: IRON SERUM 15.0 ug/dL (50-175)
[2025-02-21 15:21] LABS: LACTIC ACID 3.5 mmol/L (0.4-2.0)
[2025-02-21] MEDS: LACTATED RINGERS SOLUTION 1,000 ML IV SCH (17:14)
[2025-02-21 18:17] LABS: LACTIC ACID 2.8 mmol/L (0.4-2.0)
[2025-02-21] MEDS: PIPERACILLIN/TAZOB 3.375 GM 3.375 GM in DEXTROSE 5%-WATER - 50 ML IVPB SCH (18:47)
[2025-02-21 19:58] LABS: LACTIC ACID 2.1 mmol/L (0.4-2.0)
[2025-02-21 22:36] LABS: LACTIC ACID 5.7 mmol/L (0.4-2.0)
[2025-02-21] MEDS: KETOROLAC TROMETHAMINE 15 MG/ML VIAL IVPUSH PRN (23:45)
[2025-02-22 08:52] LABS: MCHC 32.2 g/dl (32.2-35.5); MEAN CELL VOLUME 91.8 fl (79.4-94.8); MEAN PLT VOLUME 8.6 fl (9.4-12.3); RDW 13.6 % (12.4-16.6)
[2025-02-22 09:12] LABS: CO2 27.0 mmol/L (21-32); GLUCOSE,RANDOM 123.0 mg/dL (74-106)
[2025-02-22 09:15] LABS: CREATININE 0.5 mg/dL (0.55-1.3); SGOT/AST 20.0 U/L (15-37); SGPT/ALT 19.0 U/L (13-61)
[2025-02-22 09:17] LABS: TOT PROT 5.0 g/dl (6.4-8.2)
[2025-02-22 09:18] LABS: ALK PHOS 100.0 U/L (45-117)
[2025-02-22] MEDS: LACTATED RINGERS SOLUTION 1,000 ML IV SCH (10:16)
[2025-02-22] MEDS: ACETAMINOPHEN 1000 MG/100 ML BAG IVPB PRN (16:02)
[2025-02-23 07:50] LABS: MCHC 31.7 g/dl (32.2-35.5); MEAN CELL VOLUME 92.8 fl (79.4-94.8); MEAN PLT VOLUME 8.7 fl (9.4-12.3); RDW 13.3 % (12.4-16.6)
[2025-02-23 08:23] LABS: CO2 27.0 mmol/L (21-32); CREATININE 0.4 mg/dL (0.55-1.3); GLUCOSE,RANDOM 103.0 mg/dL (74-106)
[2025-02-23 08:24] LABS: SGOT/AST 24.0 U/L (15-37); SGPT/ALT 18.0 U/L (13-61)
[2025-02-23 08:25] LABS: TOT PROT 5.2 g/dl (6.4-8.2)
[2025-02-23 08:27] LABS: ALK PHOS 142.0 U/L (45-117)
[2025-02-24 08:51] LABS: MCHC 32.3 g/dl (32.2-35.5); MEAN CELL VOLUME 90.0 fl (79.4-94.8); MEAN PLT VOLUME 8.3 fl (9.4-12.3); RDW 12.8 % (12.4-16.6)
[2025-02-24 09:53] LABS: CO2 27.0 mmol/L (21-32); GLUCOSE,RANDOM 88.0 mg/dL (74-106)
[2025-02-24 09:57] LABS: CREATININE 0.3 mg/dL (0.55-1.3); SGPT/ALT 27.0 U/L (13-61)
[2025-02-24 09:58] LABS: SGOT/AST 30.0 U/L (15-37); TOT PROT 5.0 g/dl (6.4-8.2)
[2025-02-24 09:59] LABS: ALK PHOS 155.0 U/L (45-117)
[2025-02-25 11:09] LABS: CO2 30.0 mmol/L (21-32); GLUCOSE,RANDOM 130.0 mg/dL (74-106)
[2025-02-25 11:12] LABS: CREATININE 0.5 mg/dL (0.55-1.3); SGOT/AST 39.0 U/L (15-37); SGPT/ALT 33.0 U/L (13-61)
[2025-02-25 11:13] LABS: TOT PROT 5.4 g/dl (6.4-8.2)
[2025-02-25 11:15] LABS: ALK PHOS 156.0 U/L (45-117)
[2025-02-25] MEDS: KCL 10 MEQ IVPB 10 MEQ/100 ML INFUS.BAG IVPB SCH (11:44)
[2025-02-25] MEDS: POTASSIUM CHLORIDE ORAL LIQUID 20 MEQ/15 ML PO ONE (16:07)
[2025-02-25] MEDS: MELATONIN 5 MG TABLETS PO SCH (21:28)
[2025-02-26 02:22] VITALS: RESP 18
[2025-02-26 06:43] VITALS: PULSE 80
[2025-02-26 09:10] LABS: ABSOLUTE IMMATURE GRANULOCYTES 0.31 x10^3/uL (0.0-0.031); BASOPHILS # 0.05 x10^3/uL (0.01-0.08); EOSINOPHIL % 5.7 % (0.7-5.8); EOSINOPHILS # 0.45 x10^3/uL (0.04-0.36); MCHC 32.1 g/dl (32.2-35.5); MEAN CELL VOLUME 90.6 fl (79.4-94.8); MEAN PLT VOLUME 8.6 fl (9.4-12.3); MONOCYTE # 0.91 x10^3/uL (0.24-0.86); MONOCYTE % 11.4 % (4.7-12.5); RDW 13.2 % (12.4-16.6)
[2025-02-26 09:53] LABS: CO2 27.0 mmol/L (21-32); GLUCOSE,RANDOM 117.0 mg/dL (74-106)
[2025-02-26 09:56] LABS: CREATININE 0.5 mg/dL (0.55-1.3); SGOT/AST 32.0 U/L (15-37); SGPT/ALT 35.0 U/L (13-61)
[2025-02-26 09:57] LABS: TOT PROT 5.4 g/dl (6.4-8.2)
[2025-02-26 09:59] LABS: ALK PHOS 143.0 U/L (45-117)
[2025-02-26] MEDS: POTASSIUM CHLORIDE TABS 10 MEQ TABLET.ER (FP) PO ONE (10:47)
[2025-02-26 11:00] VITALS: BP 138/58; TEMP 98
== END 2025-02-26 16:33 | disposition home or self-care (01) | DRG 330 ==
LOC: JER 04:53 → JERBED 09:21 → J8W 23:59
PROVIDERS: ADMIT Internal Medicine; ATTEND Internal Medicine
PROC: 0WQF4ZZ Repair Abdominal Wall, Percutaneous Endoscopic Approach (ICD-10-PCS; 2025-02-20)
PROC: 0DNB0ZZ Release Ileum, Open Approach (ICD-10-PCS; 2025-02-20)
PROC: 0DT80ZZ Resection of Small Intestine, Open Approach (ICD-10-PCS; principal; 2025-02-20 13:00)
DX: K46.0 Unspecified abdominal hernia with obstruction, without gangrene (principal); E87.20 Acidosis, unspecified; K55.9 Vascular disorder of intestine, unspecified; K43.6 Other and unspecified ventral hernia with obstruction, without gangrene; K76.0 Fatty (change of) liver, not elsewhere classified; R11.2 Nausea with vomiting, unspecified; R14.0 Abdominal distension (gaseous); R10.9 Unspecified abdominal pain; D72.829 Elevated white blood cell count, unspecified; K66.0 Peritoneal adhesions (postprocedural) (postinfection)
CPT/HCPCS: 36415; 71045-TC-FY; 74019-TC-FY; 74177-TC; 80053; 81003; 82962; 83540; 83550; 83605; 83690; 83735; 84100; 85025; 85027; 86803; 87040; 87389; 88304-TC; 88307-TC; 93005; 93010; 94760; 97116-GP; 97161-GP; 99285-25

== ENCOUNTER 2025-03-02 07:15 | Inpatient (IN) | payer OTHER, BC ==
[2025-03-02] MEDS ORDERED: ONDANSETRON 4 MG/2 ML VIAL ONE (08:26)
[2025-03-02] MEDS ORDERED: ACETAMINOPHEN INJECTION 100 ML ONE ×2 (08:26→15:19)
[2025-03-02] MEDS ORDERED: FAMOTIDINE 20 MG/50 ML IVPB 20 MG/50 ML MG IVPB ONE ×2 (08:27→15:19)
[2025-03-02] MEDS: FAMOTIDINE 20 MG/50 ML IVPB 20 MG/50 ML MG IVPB ONE ×2 (08:30→15:27)
[2025-03-02 08:37] LABS: ABSOLUTE IMMATURE GRANULOCYTES 0.15 x10^3/uL (0.0-0.031); BASOPHILS # 0.05 x10^3/uL (0.01-0.08); EOSINOPHIL % 1.8 % (0.7-5.8); EOSINOPHILS # 0.17 x10^3/uL (0.04-0.36); MCHC 32.7 g/dl (32.2-35.5); MEAN CELL VOLUME 90.1 fl (79.4-94.8); MEAN PLT VOLUME 8.3 fl (9.4-12.3); MONOCYTE # 0.94 x10^3/uL (0.24-0.86); MONOCYTE % 9.9 % (4.7-12.5); RDW 13.1 % (12.4-16.6)
[2025-03-02 08:45] LABS: INR 0.99 (0.83-1.09); PROTHROMBIN TIME (PATIENT) 10.8 SEC (9.7-13.0)
[2025-03-02 08:48] LABS: ACTIVATED PTT 26.0 SECONDS (25.2-36.5)
[2025-03-02] MEDS: ONDANSETRON 4 MG/2 ML VIAL IVPB ONE (08:54)
[2025-03-02] MEDS: ACETAMINOPHEN 1000 MG/100 ML BAG IVPB ONE ×2 (08:54→15:26)
[2025-03-02 09:05] LABS: CO2 31.0 mmol/L (21-32)
[2025-03-02 09:06] LABS: GLUCOSE,RANDOM 120.0 mg/dL (74-106)
[2025-03-02 09:08] LABS: SGOT/AST 61.0 U/L (15-37); SGPT/ALT 38.0 U/L (13-61)
[2025-03-02 09:09] LABS: CREATININE 0.6 mg/dL (0.55-1.3)
[2025-03-02 09:10] LABS: ALK PHOS 131.0 U/L (45-117); TOT PROT 6.9 g/dl (6.4-8.2)
[2025-03-02 10:58] LABS: GLUCOSE,RANDOM 116.0 mg/dL (74-106)
[2025-03-02 10:59] LABS: CO2 24.0 mmol/L (21-32)
[2025-03-02 11:01] LABS: CREATININE 0.5 mg/dL (0.55-1.3)
[2025-03-02 11:07] LABS: N-TERMINAL BNP 20.0 pg/ml (5-125)
[2025-03-02] MEDS: LACTATED RINGERS SOLUTION 1000 ML INFUS.BAG IV ONE (11:46)
[2025-03-02] MEDS: LACTATED RINGERS SOLUTION 1,000 ML/1,000 ML INFUS.BAG IV SCH (13:37)
[2025-03-02] MEDS ORDERED: LIDOCAINE 5% TOPICAL PATCH ONE (15:19)
[2025-03-02] MEDS: LIDOCAINE 5% TOPICAL PATCH TP ONE (15:20)
[2025-03-02 18:04] VITALS: BMI 28.1
[2025-03-02] MEDS: ACETAMINOPHEN 1000 MG/100 ML BAG IVPB PRN (18:41)
[2025-03-02] MEDS: FAMOTIDINE 20 MG/50 ML IVPB 20 MG/50 ML MG IVPB SCH (21:33)
[2025-03-02] MEDS: LIDOCAINE PATCH REMOVAL MC ONE (21:33)
[2025-03-03 08:40] LABS: MCHC 32.3 g/dl (32.2-35.5); MEAN CELL VOLUME 91.9 fl (79.4-94.8); MEAN PLT VOLUME 8.4 fl (9.4-12.3); RDW 13.0 % (12.4-16.6)
[2025-03-03 09:04] LABS: CO2 29.0 mmol/L (21-32); GLUCOSE,RANDOM 98.0 mg/dL (74-106)
[2025-03-03 09:07] LABS: CREATININE 0.4 mg/dL (0.55-1.3); SGPT/ALT 28.0 U/L (13-61)
[2025-03-03 09:08] LABS: SGOT/AST 27.0 U/L (15-37)
[2025-03-03 09:09] LABS: TOT PROT 5.4 g/dl (6.4-8.2)
[2025-03-03 09:10] LABS: ALK PHOS 109.0 U/L (45-117)
[2025-03-03] MEDS: DEXTROSE 5%-0.45% SALINE 1,000 ML IV SCH (15:52)
[2025-03-03] MEDS: AMINO ACIDS/PROTEIN HYDROLYS 30 ML LIQUID.PKT PO SCH (17:05)
[2025-03-04] MEDS: NYSTATIN 100000 UNIT/GM TOPICAL OINTMENT 15 GM TUBE TP SCH (11:36)
[2025-03-04] MEDS ORDERED: ONDANSETRON *ODT* 4 MG TABLET SL PRN (12:36)
[2025-03-05 08:00] LABS: ABSOLUTE IMMATURE GRANULOCYTES 0.09 x10^3/uL (0.0-0.031); BASOPHILS # 0.03 x10^3/uL (0.01-0.08); EOSINOPHIL % 3.8 % (0.7-5.8); EOSINOPHILS # 0.30 x10^3/uL (0.04-0.36); MCHC 32.4 g/dl (32.2-35.5); MEAN CELL VOLUME 91.2 fl (79.4-94.8); MEAN PLT VOLUME 8.5 fl (9.4-12.3); MONOCYTE # 0.98 x10^3/uL (0.24-0.86); MONOCYTE % 12.4 % (4.7-12.5); RDW 13.2 % (12.4-16.6)
[2025-03-05 08:33] LABS: SGOT/AST 22.0 U/L (15-37); SGPT/ALT 25.0 U/L (13-61)
[2025-03-05 08:35] LABS: CO2 26.0 mmol/L (21-32); GLUCOSE,RANDOM 146.0 mg/dL (74-106); TOT PROT 5.5 g/dl (6.4-8.2)
[2025-03-05 08:36] LABS: ALK PHOS 120.0 U/L (45-117)
[2025-03-05 08:38] LABS: CREATININE 0.4 mg/dL (0.55-1.3)
[2025-03-05] MEDS: SULFAMETHOXAZOLE/TRIMETHOPRIM 400MG/80MG S.S. TABLET PO SCH (09:33)
[2025-03-06] MEDS: FAMOTIDINE 20 MG TABLET PO ONE (01:00)
[2025-03-06] MEDS: ACETAMINOPHEN 500 MG TABLET (FP) PO ONE (08:15)
[2025-03-06] MEDS: FAMOTIDINE 20 MG TABLET PO SCH (12:12)
[2025-03-06 15:10] VITALS: RESP 18
[2025-03-06] MEDS: POTASSIUM CHLORIDE 10 MEQ in AMINO ACIDS 4.25%/D5W 1,000 ML IV SCH (17:30)
[2025-03-06] MEDS: AMINO ACIDS 4.25%/D5W 1,000 ML IV SCH (18:36)
[2025-03-06] MEDS: MELATONIN 5 MG TABLETS PO PRN (23:21)
[2025-03-07 07:28] VITALS: BP 115/64; PULSE 76; TEMP 98.2
[2025-03-07 10:27] LABS: CO2 27.0 mmol/L (21-32); GLUCOSE,RANDOM 119.0 mg/dL (74-106)
[2025-03-07 10:30] LABS: CREATININE 0.5 mg/dL (0.55-1.3); SGOT/AST 30.0 U/L (15-37); SGPT/ALT 31.0 U/L (13-61)
[2025-03-07 10:32] LABS: TOT PROT 5.5 g/dl (6.4-8.2)
[2025-03-07 10:33] LABS: ALK PHOS 117.0 U/L (45-117)
== END 2025-03-07 12:34 | disposition home health service (06) | DRG 393 ==
LOC: JER 07:15 → JERBED 12:56 → J8W 16:44
PROVIDERS: ADMIT Family Medicine; ATTEND Family Medicine
DX: K91.89 Other postprocedural complications and disorders of digestive system (principal); K85.90 Acute pancreatitis without necrosis or infection, unspecified; K56.7 Ileus, unspecified; K59.00 Constipation, unspecified; E86.0 Dehydration; Z85.42 Personal history of malignant neoplasm of other parts of uterus
CPT/HCPCS: 36415; 74018-TC-FY; 74177-TC; 76705-TC; 80048; 80053; 83605; 83690; 83735; 83880; 84100; 84484; 85025; 85027; 85610; 85730; 86850; 86900; 86901; 87070; 87205; 93005; 93010; 97116-GP; 97161-GP; 99285-25; Q9967